=== PATIENT | female | born 1995 | race Two or more races ===

== ENCOUNTER 2022-06-16 08:02 | Emergency (ER) | payer OTHER ==
[2022-06-16 08:26] VITALS: BP 168/97
--- NOTE | 2022-06-16 09:42 | ED Physician Documentation ---
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 Still with headache and feeling lightheaded, somewhat confused, and forgetful today as well.) Location of injury: Back Quality of pain: Throbbing, Aching Associated symptoms: AMS, Nausea / vomiting (nausea without vomiting.). No: LOC, Neck pain Symptoms worsen with: Palpation, Movement Contributing factors: Intoxicated. No: Anticoagulated Similar symptoms before: Has not had sx before Recently seen: Not recently seen Review of Systems Constitutional: denies: Fever, Chills Eyes: denies: Decreased vision Nose: denies: Rhinorrhea / runny nose, Congestion Throat: denies: Sore throat Cardiac: denies: Chest pain / pressure Respiratory: denies: Cough GI: reports: Nausea. denies: Abdominal Pain, Vomiting Neurologic: reports: Confused (slow processing and forgetful, per patient.), Headache. denies: Focal weakness, Numbness Psychiatric: denies: Insomnia (but inconsistent sleep the past 2 nights.) PD PAST MEDICAL HISTORY - Past Medical History Cardiovascular: None Respiratory: None Neuro: None, Other (denies history of migraines. ) Endocrine/Autoimmune: None - Present Medications Home Medications: Ambulatory Orders Medication Instructions Recorded Confirmed Acetaminophen [Acetaminophen Extra 500 mg PO QID PRN #30 tablet 06/16/22 Strength] Naproxen 500 mg PO BID 10 Days #20 tab 06/16/22 - Allergies Allergies/Adverse Reactions: Allergies Allergy/AdvReac Type Severity Reaction Status Date / Time No Known Drug Allergies Allergy Verified 06/16/22 08:25 - Living Situation Living Arrangement: reports: Other (on ship deployment currently) PD ED PE NORMAL - Vitals Vital signs reviewed: Yes - General General: Alert and oriented X 3, No acute distress, Well developed/nourished - HEENT HEENT: PERRL, EOMI, Other (back of head with tender area without noted laceration/no bleeding. ) - Neck Neck: Supple, no meningeal sign, No bony TTP, No adenopathy - Derm Derm: Normal color, Warm and dry - Extremities Extremities: No tenderness to palpate - Neuro Neuro: Alert and oriented X 3, No motor deficit, No sensory deficit, Normal speech Eye Opening: Spontaneous Motor: Obeys Commands Verbal: Oriented GCS Score: 15 Results - Vitals Vitals: Vital Signs - 24 hr 06/16/22 08:22 Temperature 36.0 C L Heart Rate 79 Respiratory 20 Rate Blood Pressure 168/97 H O2 Saturation 100 Oxygen O2 Source Room air - Rads (name of study) head CT Radiology: Prelim report reviewed (no ICH. ), See rad report PD MEDICAL DECISION MAKING - ED course Complexity details: reviewed results, considered differential (her symptoms sound concussive with headache, trouble concentrating/forgetful/slow processing, worse with activity and she also stated trouble sleeping past 2 nights.), d/w patient Departure - Departure Disposition: Home, Self Care Clinical Impression: Concussion Qualifiers: Encounter type: initial encounter Loss of consciousness presence/duration: unknown LOC status Qualified Code(s): S06.0XAA - Concussion with loss of consciousness status unknown, initial encounter Fall from slip, trip, or stumble Qualifiers: Encounter type: initial encounter Qualified Code(s): W01.0XXA - Fall on same level from slipping, tripping and stumbling without subsequent striking against object, initial encounter Condition: Stable Record reviewed to determine appropriate education?: Yes Instructions: ED Concussion Prescriptions: Acetaminophen [Acetaminophen Extra Strength] 500 mg PO QID PRN #30 tablet PRN Reason: Pain Naproxen 500 mg PO BID 10 Days #20 tab Comments: Your head CT scan is normal without any signs of fracture, mass-effect, bleeding. Your symptoms do sound concussive. I would anticipate symptoms likely at this point for just a couple more days or so. I would have you rest off work with light activity only. Avoid heavy physical activity or cognitive/visual stress such as esha or movies. I would anticipate some sleep problems as well. These typically resolve after several days. Follow-up with your primary care if not resolved in 2-3 more days. If you are doing better then try going back to normal activity and see how you feel. Meanwhile we will go with some anti-inflammatory such as ibuprofen or naproxen. You can take naproxen twice daily to help with inflammation and headaches. Add Tylenol every 4-6 hours as needed. No alcohol. I transmitted prescriptions to the [facility] [place] [facility] pharmacy. Forms: Activity restrictions Discharge Date/Time: 06/16/22 12:14
[2022-06-16] MEDS ORDERED: ACETAMINOPHEN 325 MG TABLET PO STA (09:59)
[2022-06-16] MEDS ORDERED: IBUPROFEN 600 MG TABLET PO STA (09:59)
--- NOTE | 2022-06-16 11:47 | CT Report ---
PROCEDURE: HEAD WO INDICATIONS: fall, struck head 2 d ago TECHNIQUE: Noncontrast 4.5 mm thick angled axial sections acquired from the foramen magnum to the vertex. For r adiation dose reduction, the following was used: automated exposure control, adjustment of mA and/or kV according to patient size. COMPARISON: None. FINDINGS: Image quality: Excellent. CSF spaces: Basal cisterns are patent. No extra-axial fluid collections. Ventricles are normal in size and shape. Brain: No midline shift. No intracranial masses or hemorrhage. Schwartz-white matter interface is norm al. Skull and face: Calvarium and visualized facial bones are intact, without suspicious lesions. Sinuses: Visualized sinuses and mastoids are clear. IMPRESSION: No CT evidence of acute intracranial abnormalities. No gross acute skull fracture. Reviewed by: Garry Hawkins MD on 06/16/2022 11:46 AM PST Approved by: Garry Hawkins MD on 06/16/2022 11:46 AM [facility] Station ID: [id number]
--- NOTE | 2022-06-18 14:34 | ED Physician Documentation ---
ED Addendum - Addendum Addendum: 06/18/22 14:33 Patient's prescriptions for naproxen and acetaminophen resent to [facility] in [place] at their request.
== END 2022-06-16 12:14 | disposition home or self-care (01) ==
LOC: ED 08:02
DX: S06.0XAA Concussion with loss of consciousness status unknown, initial encounter (principal); W01.198A Fall on same level from slipping, tripping and stumbling with subsequent striking against other object, initial encounter; Y93.01 Activity, walking, marching and hiking; Y92.814 Boat as the place of occurrence of the external cause; Y99.1 Military activity
CPT/HCPCS: 70450; 99282; 99284; A9270